=== PATIENT | male | born 1995 | race African-American/Black ===

== ENCOUNTER 2018-11-24 05:07 | Observation (INO) ==
[2018-11-24] MEDS ORDERED: ONDANSETRON INJ 2 MG/ML 2 ML VIAL IV STA (05:41)
[2018-11-24] MEDS ORDERED: MoRPHine SULFATE 4 MG/ML 1 ML CARP\\VIAL IV PRN ×2 (05:41→12:26)
[2018-11-24] MEDS ORDERED: SODIUM CHLORIDE 0.9% 1000ML 1,000 ML IV SCH (05:45)
[2018-11-24 06:03] LABS: Basophils # (auto) 0.03 K/uL (0-0.2); Basophils % (auto) 0.2 %; Eosinophils # (auto) 0.19 K/uL (0-0.5); Eosinophils % (auto) 1.1 %; Hematocrit (blood only) 43.5 % (42-52); Hemoglobin 15.3 g/dL (14.0-18.0); Immature Granulocytes # (auto) 0.05 K/uL (0.00-0.02); Immature Granulocytes % (auto) 0.3 %; Lymphocytes # (auto) 2.36 K/uL (1.2-3.4); Lymphocytes % (auto) 13.2 %; Mean Corpuscular Hgb Conc 35.2 g/dL (32-36); Mean Corpuscular Volume 91.6 fL (80-100); Mean Platelet Volume 9.4 fL (7.4-10.4); Monocytes # (auto) 1.67 K/uL (0.11-0.59); Monocytes % (auto) 9.4 %; Neutrophils # (auto) 13.52 K/uL (1.4-6.5); Neutrophils % (auto) 75.8 %; Platelet Count 284 K/uL (130-400); RDW Coefficient of Variation 12.6 % (11.5-14.5); RDW Standard Deviation 42.6 fL (36.4-46.3); Red Blood Count 4.75 M/uL (4.7-6.1); White Blood Count 17.82 K/uL (4.8-10.8)
[2018-11-24 06:18] LABS: Appearance Urine Clear (Clear); Bilirubin Urine Negative (Negative); Blood Urine Negative (Negative); Color Urine Yellow; Glucose Urine UA Negative (Negative); Ketones Urine Negative (Negative); Leukocyte Esterase Urine Negative (Negative); Nitrite Urine Negative (Negative); Protein Urine Negative (Negative); Specific Gravity Urine 1.024 (1.000-1.030); Urobilinogen Urine Negative (Negative); pH Urine 6.5 (4.5-7.5)
--- NOTE | 2018-11-24 06:18 | Emergency Department Note ---
History of Present Illness General Chief complaint: Abdominal Pain Stated complaint: ABD PAIN Time Seen by Provider: 11/24/18 05:25 History of Present Illness Maximum Pain Intensity: 9 This is a 23-year-old male presenting to the emergency department for evaluation of right lower quadrant abdominal pain that has been slowly worsening over the past 2-3 days. The patient considers himself otherwise usually healthy and has not had symptoms like this in the past. He has not had fever or chills. He last ate at roughly 10 PM yesterday, roughly 7 hours prior to arrival. He has been able to eat and drink as normal, and food does not appear to worsen or improve his symptoms. The patient has not taken anything [id number] and describes the pain as a dull, nonradiating, 05/06. He does not report a history of previous abdominal surgery. Home Medications Home Medications Medication Instructions Recorded Confirmed Type oxycodone-acetaminophen [Percocet] 1 - 2 tab PO Q6H PRN 3 Days #14 tab 11/24/18 Rx Allergies Allergy/AdvReac Type Severity Reaction Status Date / Time No Known Allergies Allergy Unverified 11/24/18 05:46 Past Med/Surg History Medical History No chronic diseases present No significant past surgical history Surgical History S/P wrist surgery Social History Preferred Language: [place]ian Communication Ability: Effective Beliefs That Will Affect Care: None Current Living Situation: Alone Other Information That Helps Us Care for You: No Feels Safe at Home: Yes Safety Concerns: Feels Safe At This Time Smoking Status: Never smoker Hx Alcohol Use: No Hx Substance Use: No Review of Systems A total of 10 systems reviewed and were otherwise negative Physical Exam Vital Signs Vital Signs - 24 hr 11/24/18 05:13 11/24/18 07:22 11/24/18 10:56 Temperature 36.3 C L Temperature Source Oral Sepsis Recent Fever Within 48 Hours No Sepsis Action Taken by Nursing No Action Required Pulse Rate 83 Pulse Rate [Apical] Pulse Rate [Right Finger] 59 L 64 Pulse Rhythm [Apical] Pulse Rhythm [Right Finger] Regular Regular Pulse Strength [Right Finger] Normal Normal Respiratory Rate 16 20 20 Respiratory Effort / Characteristics Non-Labored Spontaneous Non-Labored Spontaneous Non-Labored Spontaneous Respiratory Depth Normal Normal Normal Respiratory Pattern Regular Regular Blood Pressure 127/66 Blood Pressure [Left Arm] Blood Pressure [Right Arm] 126/57 L 106/36 L Blood Pressure Mean 86 Blood Pressure Mean [Left Arm] Blood Pressure Mean [Right Arm] 80 59 Blood Pressure Position Sitting Blood Pressure Position [Left Arm] Blood Pressure Position [Right Arm] Sitting Pulse Oximetry 99 100 99 Oxygen Delivery Method Room Air Room Air Room Air Oxygen Flow Rate 11/24/18 12:31 11/24/18 12:40 11/24/18 12:50 Temperature 36.8 C Temperature Source Temporal Artery Scan Sepsis Recent Fever Within 48 Hours Sepsis Action Taken by Nursing Pulse Rate Pulse Rate [Apical] 76 76 100 H Pulse Rate [Right Finger] Pulse Rhythm [Apical] Regular Regular Regular Pulse Rhythm [Right Finger] Pulse Strength [Right Finger] Respiratory Rate 17 12 18 Respiratory Effort / Characteristics Non-Labored Spontaneous Non-Labored Spontaneous Non-Labored Spontaneous Respiratory Depth Normal Normal Normal Respiratory Pattern Regular Regular Regular Blood Pressure Blood Pressure [Left Arm] 112/49 L 118/49 L 134/63 Blood Pressure [Right Arm] Blood Pressure Mean Blood Pressure Mean [Left Arm] 70 72 86 Blood Pressure Mean [Right Arm] Blood Pressure Position Blood Pressure Position [Left Arm] Semi-fowlers Semi-fowlers Semi-fowlers Blood Pressure Position [Right Arm] Pulse Oximetry 97 100 92 Oxygen Delivery Method Oxymask Oxymask Oxymask Oxygen Flow Rate 10 10 10 11/24/18 13:00 11/24/18 13:10 11/24/18 13:20 Temperature Temperature Source Sepsis Recent Fever Within 48 Hours Sepsis Action Taken by Nursing Pulse Rate Pulse Rate [Apical] 96 H 85 75 Pulse Rate [Right Finger] Pulse Rhythm [Apical] Regular Regular Regular Pulse Rhythm [Right Finger] Pulse Strength [Right Finger] Respiratory Rate 18 14 14 Respiratory Effort / Characteristics Non-Labored Spontaneous Non-Labored Spontaneous Non-Labored Spontaneous Respiratory Depth Normal Normal Normal Respiratory Pattern Regular Regular Regular Blood Pressure Blood Pressure [Left Arm] 122/68 117/77 123/51 L Blood Pressure [Right Arm] Blood Pressure Mean Blood Pressure Mean [Left Arm] 86 90 75 Blood Pressure Mean [Right Arm] Blood Pressure Position Blood Pressure Position [Left Arm] Semi-fowlers Semi-fowlers Semi-fowlers Blood Pressure Position [Right Arm] Pulse Oximetry 93 95 95 Oxygen Delivery Method Oxymask Nasal Cannula Nasal Cannula Oxygen Flow Rate 10 2 2 11/24/18 13:30 11/24/18 13:40 11/24/18 13:50 Temperature 37.3 C Temperature Source Temporal Artery Scan Sepsis Recent Fever Within 48 Hours Sepsis Action Taken by Nursing Pulse Rate Pulse Rate [Apical] 79 70 84 Pulse Rate [Right Finger] Pulse Rhythm [Apical] Regular Regular Regular Pulse Rhythm [Right Finger] Pulse Strength [Right Finger] Respiratory Rate 16 14 16 Respiratory Effort / Characteristics Non-Labored Spontaneous Non-Labored Spontaneous Non-Labored Spontaneous Respiratory Depth Normal Normal Normal Respiratory Pattern Regular Regular Regular Blood Pressure Blood Pressure [Left Arm] 117/53 L 120/58 L 117/48 L Blood Pressure [Right Arm] Blood Pressure Mean Blood Pressure Mean [Left Arm] 74 78 71 Blood Pressure Mean [Right Arm] Blood Pressure Position Blood Pressure Position [Left Arm] Semi-fowlers Semi-fowlers Semi-fowlers Blood Pressure Position [Right Arm] Pulse Oximetry 95 97 99 Oxygen Delivery Method Nasal Cannula Nasal Cannula Nasal Cannula Oxygen Flow Rate 2 2 2 11/24/18 14:00 11/24/18 14:30 11/24/18 15:01 Temperature 37.0 C 36.9 C Temperature Source Oral Oral Sepsis Recent Fever Within 48 Hours Sepsis Action Taken by Nursing Pulse Rate Pulse Rate [Apical] 87 Pulse Rate [Right Finger] 72 67 Pulse Rhythm [Apical] Regular Pulse Rhythm [Right Finger] Pulse Strength [Right Finger] Respiratory Rate 17 16 17 Respiratory Effort / Characteristics Non-Labored Spontaneous Non-Labored Spontaneous Respiratory Depth Normal Normal Normal Respiratory Pattern Regular Regular Blood Pressure Blood Pressure [Left Arm] 113/90 118/63 96/40 L Blood Pressure [Right Arm] Blood Pressure Mean Blood Pressure Mean [Left Arm] 97 81 58 Blood Pressure Mean [Right Arm] Blood Pressure Position Blood Pressure Position [Left Arm] Semi-fowlers Lying Blood Pressure Position [Right Arm] Pulse Oximetry 98 94 98 Oxygen Delivery Method Nasal Cannula Nasal Cannula Nasal Cannula Oxygen Flow Rate 2 2 2 11/24/18 15:31 11/24/18 15:35 11/24/18 16:32 Temperature 36.6 C 36.8 C Temperature Source Oral Oral Sepsis Recent Fever Within 48 Hours Sepsis Action Taken by Nursing Pulse Rate Pulse Rate [Apical] Pulse Rate [Right Finger] 80 56 L Pulse Rhythm [Apical] Pulse Rhythm [Right Finger] Pulse Strength [Right Finger] Respiratory Rate 17 17 Respiratory Effort / Characteristics Non-Labored Spontaneous Respiratory Depth Normal Normal Normal Respiratory Pattern Regular Blood Pressure Blood Pressure [Left Arm] 96/57 L 95/57 L Blood Pressure [Right Arm] Blood Pressure Mean Blood Pressure Mean [Left Arm] 70 69 Blood Pressure Mean [Right Arm] Blood Pressure Position Blood Pressure Position [Left Arm] Lying Lying Blood Pressure Position [Right Arm] Pulse Oximetry 90 99 Oxygen Delivery Method Room Air Nasal Cannula Nasal Cannula Oxygen Flow Rate 2 2 11/24/18 17:37 11/24/18 20:00 11/24/18 23:48 Temperature 36.4 C L 36.6 C 36.5 C Temperature Source Oral Oral Oral Sepsis Recent Fever Within 48 Hours Sepsis Action Taken by Nursing Pulse Rate Pulse Rate [Apical] Pulse Rate [Right Finger] 69 60 50 L Pulse Rhythm [Apical] Pulse Rhythm [Right Finger] Regular Regular Pulse Strength [Right Finger] Normal Normal Respiratory Rate 17 16 16 Respiratory Effort / Characteristics Non-Labored Spontaneous Respiratory Depth Normal Normal Normal Respiratory Pattern Blood Pressure Blood Pressure [Left Arm] 100/56 L 93/62 L 92/49 L Blood Pressure [Right Arm] Blood Pressure Mean Blood Pressure Mean [Left Arm] 70 72 63 Blood Pressure Mean [Right Arm] Blood Pressure Position Blood Pressure Position [Left Arm] Lying Lying Lying Blood Pressure Position [Right Arm] Pulse Oximetry 95 99 97 Oxygen Delivery Method Room Air Room Air Room Air Oxygen Flow Rate VITALS: Vitals are noted on the nurse's note and reviewed by myself. Vital signs stable. GENERAL: Well-developed, well-nourished, male, who is in no acute distress and resting comfortably. Patient is cooperative with the examination. HEAD: Normocephalic atraumatic. EYES: Pupils equal round and reactive to light and accommodation. Conjunctivae without injection, sclerae without icterus. Extraocular movements intact. MOUTH: Mucous membranes moist. Tonsils are not enlarged. Pharynx without erythema, blood, or exudate. Uvula midline. Airway patent. NECK: Supple without nuchal rigidity. No lymphadenopathy. No thyromegaly. Cervical spine is nontender. HEART: Regular rate and rhythm without murmurs gallops or rubs. LUNGS: Clear to auscultation bilaterally without wheezes, rales or rhonchi. No retractions or accessory muscle use. ABDOMEN: Positive normal bowel sounds x 4. Soft with exquisite right lower quadrant tenderness on palpation. No rebound or guarding. No CVA tenderness. MUSCULOSKELETAL: No muscle atrophy, erythema, or edema noted. Full range of motion in all extremities. NEURO: Patient was alert and oriented to person place and time. CN II through XII grossly intact. SKIN: The skin was without rashes, erythema, edema, or bruising. Capillary refill less than 2 seconds. Course Administered Medications Lactated Ringer's (Lr) 1,000 mls @ 125 mls/hr IV .Q8H ELIZABETH Stop: 12/24/18 12:29 Last Admin: 11/25/18 00:17 Dose: 125 mls/hr Documented by: [id number] Infusion: 11/25/18 00:17 Dose: 125 mls/hr Documented by: [id number] Admin: 11/24/18 16:51 Dose: 125 mls/hr Documented by: [id number] Ibuprofen (Motrin) 600 mg PO TID PRN PRN Reason: Pain Stop: 12/24/18 20:14 Last Admin: 11/24/18 20:58 Dose: 600 mg Documented by: [id number] Ioversol (Optiray 320 100ml) 94 ml IV ONCE PRN PRN Reason: Interaction Checking Stop: 11/28/18 08:22 Last Admin: 11/24/18 08:24 Dose: 94 ml Documented by: [id number] Ondansetron HCl (Zofran) 4 mg IV Q4H PRN PRN Reason: Nausea And Vomiting Stop: 12/24/18 12:25 Last Admin: 11/24/18 20:22 Dose: 4 mg Documented by: [id number] Admin: 11/24/18 17:16 Dose: 4 mg Documented by: [id number] Discontinued Medications Sodium Chloride (Nss 1000ml) 1,000 mls @ 999 mls/hr IV .Q1H1M ELIZABETH Stop: 11/24/18 06:45 Last Infusion: 11/24/18 07:00 Dose: 0 mls/hr Documented by: [id number] Admin: 11/24/18 05:55 Dose: 999 mls/hr Documented by: [id number] Sodium Chloride (Nss) 500 mls @ 125 mls/hr IV .Q4H ELIZABETH Stop: 12/24/18 09:29 Last Admin: 11/24/18 15:32 Dose: Not Given Documented by: [id number] Infusion: 11/24/18 15:32 Dose: 0 mls/hr Documented by: [id number] Admin: 11/24/18 09:42 Dose: 125 mls/hr Documented by: [id number] Cefoxitin Sodium (Mefoxin) 2,000 mg in 60 mls @ 100 mls/hr IV NOW STA Stop: 11/24/18 09:55 Last Infusion: 11/24/18 15:31 Dose: 0 mls/hr Documented by: [id number] Admin: 11/24/18 09:41 Dose: 100 mls/hr Documented by: [id number] Lidocaine/Epinephrine (Xylocaine/Epinephrine 1%) Confirm Administered Dose 20 ml .ROUTE .STK-MED ONE Stop: 11/24/18 11:04 Last Admin: 11/24/18 12:08 Dose: 15 ml Documented by: [id number] Meperidine HCl (Demerol) 12.5 mg IV Q5M PRN PRN Reason: PACU Use Only-Pain/Shivering Stop: 11/24/18 17:48 Last Admin: 11/24/18 13:03 Dose: 12.5 mg Documented by: [id number] Meperidine HCl (Demerol) Confirm Administered Dose 25 mg .ROUTE .STK-MED ONE Stop: 11/24/18 12:50 Last Admin: 11/24/18 15:30 Dose: Not Given Documented by: [id number] Morphine Sulfate (Morphine Sulfate) 4 mg IV Q1H PRN PRN Reason: Pain Stop: 12/08/18 05:40 Last Admin: 11/24/18 05:55 Dose: 4 mg Documented by: [id number] Ondansetron HCl (Zofran) 4 mg IV NOW STA Stop: 11/24/18 05:42 Last Admin: 11/24/18 05:55 Dose: 4 mg Documented by: [id number] Oxycodone/Acetaminophen (Percocet 5mg/325mg) 1 tab PO Q4H PRN PRN Reason: MODERATE Pain (Scale 4,5,6) Stop: 12/08/18 12:25 Last Admin: 11/24/18 17:13 Dose: 1 tab Documented by: [id number] Medical Decision Making Differential Diagnosis Differential diagnosis: Etiologies such as biliary colic, cholecystitis, hepatitis, pancreatitis, cardiac disease, pancreatitis, gastritis, peptic ulcer disease, appendicitis, cystitis, diverticulitis, mesenteric ischemia, inflammatory bowel disease, ileus, bowel obstruction, testicular/adnexal torsion, aortic pathology, shingles, as well as others were considered Laboratory Data Result diagrams: 11/24/18 05:33 11/24/18 05:33 Lab Results 11/24/18 11/24/18 11/24/18 Range/Units 05:33 05:33 05:33 WBC 17.82 H (4.8-10.8) K/uL RBC 4.75 (4.7-6.1) M/uL Hgb 15.3 (14.0-18.0) g/dL Hct 43.5 (42-52) % MCV 91.6 (80-100) fL MCH 32.2 (25-34) pg MCHC 35.2 (32-36) g/dL RDW Std Deviation 42.6 (36.4-46.3) fL RDW Coeff of Luciano 12.6 (11.5-14.5) % Plt Count 284 (130-400) K/uL MPV 9.4 (7.4-10.4) fL Immature Gran % (Auto) 0.3 % Neut % (Auto) 75.8 % Lymph % (Auto) 13.2 % [place] % (Auto) 9.4 % Eos % (Auto) 1.1 % Baso % (Auto) 0.2 % Immature Gran # (Auto) 0.05 H (0.00-0.02) K/uL Neut # (Auto) 13.52 H (1.4-6.5) K/uL Lymph # (Auto) 2.36 (1.2-3.4) K/uL [place] # (Auto) 1.67 H (0.11-0.59) K/uL Eos # (Auto) 0.19 (0-0.5) K/uL Baso # (Auto) 0.03 (0-0.2) K/uL Sodium 141 (136-145) mmol/L Potassium 3.7 (3.5-5.1) mmol/L Chloride 108 H (98-107) mmol/L Carbon Dioxide 29 (21-32) mmol/L Anion Gap 4.0 (3-11) BUN 11 (7-18) mg/dl Creatinine 1.01 (0.6-1.4) mg/dl Est Cr Clr Drug Dosing 99.2 ml/min Est GFR ( Amer) 122.7 Est GFR (Non-Af Amer) 105.8 BUN/Creatinine Ratio 11.3 (10-20) Glucose 93 (70-99) mg/dl Calcium 9.2 (8.5-10.1) mg/dl Total Bilirubin 1.2 H (0.2-1) mg/dl AST 24 (15-37) U/L ALT 25 (12-78) U/L Alkaline Phosphatase 44 L (45-117) U/L Total Protein 8.2 (6.4-8.2) gm/dl Albumin 4.1 (3.4-5.0) gm/dl Globulin 4.1 H (2.5-4.0) gm/dl Albumin/Globulin Ratio 1.0 (0.9-2) Lipase 148 (73-393) U/L Specimen Hemolysis Urine Color Yellow Urine Appearance Clear (Clear) Urine pH 6.5 (4.5-7.5) Ur Specific [place] 1.024 (1.000-1.030) Urine Protein Negative (Negative) Urine Glucose (UA) Negative (Negative) Urine Ketones Negative (Negative) Urine Blood Negative (Negative) Urine Nitrite Negative (Negative) Urine Bilirubin Negative (Negative) Urine Urobilinogen Negative (Negative) Ur Leukocyte Esterase Negative (Negative) Imaging Data Radiologist's Impression: ABDOMEN AND PELVIS CT WITH IV AND ORAL CONTRAST CT DOSE: 278.28 mGy.cm HISTORY: Acute right lower quadrant abdominal pain with nausea, vomiting and diarrhea RLQ abd pain TECHNIQUE: Multiaxial CT images of the abdomen and pelvis were performed following the use of intravenous and oral contrast. A dose lowering technique was utilized adhering to the principles of ALARA. COMPARISON STUDY: None. FINDINGS: The imaged lung bases appear clear. The study is mildly motion degraded. There is no pneumatosis or pneumoperitoneum identified. The imaged inferior cardiac chambers are unremarkable. Periportal edema is likely related to hydration status. Indeterminate 3 mm hypodense lesion of the inferior right hepatic lobe, likely benign. Liver is otherwise unremarkable. The gallbladder, spleen, pancreas and adrenal glands are unremarkable. Kidneys and ureters are within normal limits. Mild urinary bladder distention. Trace free pelvic fluid about the dependent pelvis. Aorta and IVC are unremarkable. There is no significant adenopathy. No small bowel obstruction. The appendix is fluid-filled and dilated measuring up to 10 mm transversely with mucosal hyperemia and moderate adjacent periappendiceal inflammation. Trace fluid fluid about the right pericolic distribution. No evidence of perforation or drainable fluid collection. Soft tissues are unremarkable. Bones appear to be intact. IMPRESSION: 1. Findings compatible with acute uncomplicated appendicitis. No evidence of perforation or drainable fluid collection. 2. No bowel obstruction. 3. Trace free pelvic fluid, likely reactive. MDM Narrative Physical exam and history were performed. Nursing notes, EMR, and Medication List were personally reviewed. Patient appears to have right lower quadrant abdominal pain bringing him to the emergency department. The patient is exquisitely tender in the right lower quadrant on gentle palpation. IV access was established and labs were obtained. The patient was hydrated with normal saline and given IV morphine and IV Zofran. CT scan with IV and oral contrast was ordered. The patient's blood work is as above and was reviewed. He does have a markedly elevated white blood cell count of 17.8 with associated shift. He does not have a significant anemia or gross electrolyte imbalance. Lipase and transaminases are not diagnostic. CT scan is as above and was reviewed by myself and radiology. CT scan does reveal acute uncomplicated appendicitis. The findings were discussed with the patient. I also discussed the findings with the patient's family by telephone. We did consult the general surgeon, Dr. Freeman, who agreed to evaluate the patient here in the department. The patient was started on Mefoxin and maintenance fluids. Please see the surgical team dictation for further patient course, plan, and disposition. The chart was completed utilizing [employer]™ Speech Voice Recognition Software. Grammatical errors, random word insertions, pronoun errors, and incomplete sentences are an occasional consequence of this system due to software limitations, ambient noise, and hardware issues. Any formal questions or concerns about the content, text, or information contained within the body of this dictation should be directly addressed to the provider for clarification. . Impression & Plan Acute appendicitis Discharge Plan Visit Data *Final* Discharge Date/Time: 11/24/18 11:06 Chief Complaint: Abdominal Pain Stated Complaint: ABD PAIN ED Provider: Toribio Mcmullen ED Midlevel Provider: Blaise Jones Discharge Problem: Acute appendicitis Patient Disposition: Still a Patient Discharge Instructions Interventions: ED Discharge Assessment Last Done: 11/24/18 11:06 Discharge Problem: Acute appendicitis Qualifiers: Acute appendicitis type: unspecified acute appendicitis type Qualified Code(s): K35.80 - Unspecified acute appendicitis
[2018-11-24 06:19] LABS: Albumin Level 4.1 gm/dl (3.4-5.0); BUN Creatinine Ratio 11.3 (10-20); Bilirubin,Total 1.2 mg/dl (0.2-1); Calcium 9.2 mg/dl (8.5-10.1); Creatinine Clr Calc Pharmacy 99.2 ml/min; Est GFR (African American) 122.7; Est GFR (Non-African American) 105.8; Globulin 4.1 gm/dl (2.5-4.0); Potassium 3.7 mmol/L (3.5-5.1); Total Protein 8.2 gm/dl (6.4-8.2)
[2018-11-24] MEDS ORDERED: IOVERSOL 100ml IV PRN (08:23)
--- NOTE | 2018-11-24 08:43 | CT Scan Report ---
ABDOMEN AND PELVIS CT WITH IV AND ORAL CONTRAST CT DOSE: 278.28 mGy.cm HISTORY: Acute right lower quadrant abdominal pain with nausea, vomiting and diarrhea RLQ abd pain TECHNIQUE: Multiaxial CT images of the abdomen and pelvis were performed following the use of intrave nous and oral contrast. A dose lowering technique was utilized adhering to the principles of ALARA. COMPARISON STUDY: None. FINDINGS: The imaged lung bases appear clear. The study is mildly motion degraded. There is no pneumatosis or pneumoperitoneum identified. The imaged inferior cardiac chambers are unremarkable. Periportal edema is likely related to hydration status. Indeterminate 3 mm hypodense lesion of the in ferior right hepatic lobe, likely benign. Liver is otherwise unremarkable. The gallbladder, spleen, p ancreas and adrenal glands are unremarkable. Kidneys and ureters are within normal limits. Mild urina ry bladder distention. Trace free pelvic fluid about the dependent pelvis. Aorta and IVC are unremark able. There is no significant adenopathy. No small bowel obstruction. The appendix is fluid-filled and dilated measuring up to 10 mm transverse ly with mucosal hyperemia and moderate adjacent periappendiceal inflammation. Trace fluid fluid about the right pericolic distribution. No evidence of perforation or drainable fluid collection. Soft tis sues are unremarkable. Bones appear to be intact. IMPRESSION: 1. Findings compatible with acute uncomplicated appendicitis. No evidence of perforation or drainable fluid collection. 2. No bowel obstruction. 3. Trace free pelvic fluid, likely reactive. Electronically signed by: Juan Perez M.D. 11/24/2018 8:41 AM
[2018-11-24] MEDS ORDERED: cefOXitin 2,000 MG/60 ML BAG IV STA (09:20)
[2018-11-24] MEDS: SODIUM CHLORIDE 0.9% 500 ML IV SCH ×2 (09:42→15:32)
[2018-11-24] MEDS ORDERED: ATROPINE SULFATE 0.1 MG/ML 10ML SYR IV PRN (10:20)
[2018-11-24] MEDS ORDERED: ONDANSETRON INJ 2 MG/ML 2 ML VIAL ONE (10:20)
[2018-11-24] MEDS ORDERED: ROCURONIUM BROMIDE 10 MG/ML 5 ML VIAL ONE (10:20)
[2018-11-24] MEDS ORDERED: DEXAMETHASONE SOD INJ 4 MG/ML VIAL ONE (10:20)
[2018-11-24] MEDS ORDERED: fentaNYL citrate 100 MCG/2 ML VIAL IV PRN (10:20)
[2018-11-24] MEDS ORDERED: fentaNYL citrate 100 MCG/2 ML VIAL ONE ×2 (10:20→11:39)
[2018-11-24] MEDS ORDERED: ONDANSETRON INJ 2 MG/ML 2 ML VIAL IV PRN (10:20)
[2018-11-24] MEDS ORDERED: MIDAZOLAM HCL 1 MG/ML 2ML VIAL ONE (10:20)
[2018-11-24] MEDS ORDERED: ePHEDrine sulfate 50 MG/ML AMP IV PRN (10:20)
[2018-11-24] MEDS ORDERED: PROPOFOL IV EMULSION 10 MG/ML 20 ML VIAL IV ONE (10:20)
--- NOTE | 2018-11-24 10:52 | History & Physical Bridge Note ---
Date of Service November 24, 2018 History & Physical Bridge Note I have examined the patient, reviewed the History & Physical and in the interval since the performance of the History & Physical I have noted the following changes of clinical significance: no changes noted localized tenderness and rebound rlq ct scan acute appendicitis elevated wbc will plan for lap appy possible open r and c explained to pt family members driving in
--- NOTE | 2018-11-24 10:54 | Surgery Consultation ---
Date of Consultation November 24, 2018 Assessment & Plan (1) Acute appendicitis: Patient seen and examined with Dr Freeman. Recommend removal of appendix. Patient agreeable. Will proceed with Laparoscopic Appendectomy, Possible Open Appedectomy in OR today. Risks of surgery reviewed with patient. All questions answered. Consent obtained. SCDs. History of Present Illness Reason for Consultation: Acute Appendicitis History of Present Illness Mr. Renee is a healthy 23 year old male who presents to [facility] ED for evaluation of abdominal pain x 3 days. He reports that he was getting ready to travel to [place], but developed this worsening abdominal pain. Patient reports some nausea, but denies vomiting. He reports prior surgical history significant for right arm surgery. He denies prior abdominal surgeries. He denies fevers or chills. Last meal was yesterday night (10PM). CT scan in ED reveals findings compatible with acute uncomplicated appendicitis. No evidence of perforation or drainable fluid collection. No bowel obstruction. Trace free pelvic fluid, likely reactive. WBC elevated at 17.82 Allergies Allergy/AdvReac Type Severity Reaction Status Date / Time No Known Allergies Allergy Unverified 11/24/18 05:46 Home Medications Home Medications Medication Instructions Recorded Confirmed Type No Known Home Medications 11/24/18 11/24/18 History Patient History Medical History No chronic diseases present No significant past surgical history Social History Feels Safe at Home: Yes Smoking Status: Never smoker Physical Exam Vital Signs (Past 24 Hours): Last Vital Signs Temp 36.3 C L 11/24/18 05:13 Pulse 59 L 11/24/18 07:22 Resp 20 11/24/18 07:22 BP 126/57 L 11/24/18 07:22 Pulse Ox 100 11/24/18 07:22 Gastrointestinal (Abdomen): Percussion/Palpation: + abdomen tender (right lower quadrant ) and abdomen soft (1) Acute appendicitis Acute appendicitis type: unspecified acute appendicitis type Qualified Code(s): K35.80 - Unspecified acute appendicitis
[2018-11-24] MEDS ORDERED: LIDOCAINE/EPINEPHRINE 1% 20 ML VIAL ONE (11:03)
--- NOTE | 2018-11-24 11:11 | Anesthesiology Consultation ---
Date of Service November 24, 2018 Assessment & Plan (1) Encounter for pre-operative examination: Chart Review Chart Review: Acceptable Risk for Surgery Consults Requested none ASA [id number] Proposed Anesthesia Anesthesia Type: General Risk / Benefits Reviewed With: PT / POA / Parent / Guardian, Accepts Plan and Informed Consent Obtained NPO Date Last Intake of Fluids: 11/23/18 Time Last Intake of Fluids: 22:00 Last Intake of Fluids Comment: galina mist Date Last Intake of Solids: 11/23/18 Time Last Intake of Solids: 22:00 Last Intake of Solids Comment: [place] History Surgery Operation Date: 11/24/18 11:00 Proposed Procedures p Laparoscopic Appendectomy - Alfa Freeman MD Height/Weight Height: 5 ft 7 in Weight: 60.6 kg Allergies Allergy/AdvReac Type Severity Reaction Status Date / Time No Known Allergies Allergy Unverified 11/24/18 05:46 Medications Home Medications Medication Instructions Recorded Confirmed Last Taken No Known Home Medications 11/24/18 11/24/18 Unknown Active Medications Generic Name Dose Route Start Last Admin Trade Name Freq PRN Reason Stop Dose Admin Sodium Chloride 500 mls @ 125 mls/hr 11/24/18 09:30 11/24/18 09:42 Nss IV 12/24/18 09:29 125 mls/hr .Q4H ELIZABETH Administration Ioversol 94 ml 11/24/18 08:23 11/24/18 08:24 Optiray 320 100ml IV 11/28/18 08:22 94 ml ONCE PRN Administration Interaction Checking Morphine Sulfate 4 mg 11/24/18 05:41 11/24/18 05:55 Morphine Sulfate IV 12/08/18 05:40 4 mg Q1H PRN Administration Pain Past Medical History Medical History No chronic diseases present No significant past surgical history Past Surgical History Surgical History S/P wrist surgery Past Anesthesia History No Hx of Anesthesia Complications and No Family Hx of Anesthesia Complications History of PONV No Motion Sickness Screening History of Motion Sickness: No Social History Smoking Status: Never smoker Exercise / Class Metabolic Activity II 4-5 Yardwork/Stairs/Walk up hill Physical Exam Vital Signs Last Vital Signs Temp 97.3 F L 11/24/18 05:13 Pulse 64 11/24/18 10:56 Resp 20 11/24/18 10:56 BP 106/36 L 11/24/18 10:56 Pulse Ox 99 11/24/18 10:56 ENMT Mouth: no dentition abnormality Thyromental Distance: > or= 3.5 Finger Breadths Mallampati Class: II Neck normal visual inspection Respiratory normal respiratory effort Auscultation: lungs clear to auscultation bilaterally Cardiovascular Rate/Rhythm: regular rate and regular rhythm Testing Laboratory Results 11/24/18 05:33 11/24/18 05:33 Urine Color Yellow 11/24/18 05:33 Urine Appearance Clear (Clear) 11/24/18 05:33 Urine pH 6.5 (4.5-7.5) 11/24/18 05:33 Ur Specific [place] 1.024 (1.000-1.030) 11/24/18 05:33 Urine Protein Negative (Negative) 11/24/18 05:33 Urine Glucose (UA) Negative (Negative) 11/24/18 05:33 Urine Ketones Negative (Negative) 11/24/18 05:33 Urine Nitrite Negative (Negative) 11/24/18 05:33 Ur Leukocyte Esterase Negative (Negative) 11/24/18 05:33
--- NOTE | 2018-11-24 12:06 | Post Operative Brief Note ---
Immediate Post Op Note v1 Date of Surgery November 24, 2018 Pre & Post Diagnosis Operation Date: 11/24/18 11:00 Pre-Op Diagnosis: Acute Appendicitis Post-Op Diagnosis: Acute Appendicitis Procedure Operation Date: 11/24/18 11:00 Actual Procedures p Laparoscopic Appendectomy - Alfa Freeman MD Surgeon Alfa Freeman MD Furniture Servicer Opal QUINN Estimated Blood Loss 5 Findings Consistent with Post-Op Diagnosis
--- NOTE | 2018-11-24 12:16 | Operative Report ---
Post Operative Report Pre & Post Diagnosis Operation Date: 11/24/18 11:00 Pre-Op Diagnosis: Acute Appendicitis Post-Op Diagnosis: Acute Appendicitis Patient was brought into the operating theater supine position general endotracheal anesthesia abdomen prepped with Betadine properly draped systemic antibiotics on board a timeout was had small incision made supraumbilically sufficient enough for Veress needle followed by CO2 followed by 5 mm trocar point of entry expected no intra-identified direct visualization we were able to see the cecum looking at it patient had a very small indirect hernia on the right direct visualization we then placed a 5 mm costal port with preemptive local analgesic camera was placed in that area we then we converted the umbilical port to a 12 mm by enlarging the incision dilating the tract Daysi and placing the trocar the 5 mm trocar was removed from umbilical area was placed in the left lower quadrant under direct visualization Was placed in left lower quadrant were able then to use the umbilical right upper quadrant port to elevate the cecum identify the appendix which was fairly broad-based excuse me very long and it was significant retroperitoneal with some fibrous adhesions we elevated up and took down these fibrous adhesions laterally down towards centrally we then were able to identify that the patient artery to the appendix and the mesoappendix was quite large we doubly clipped approximately once distally and divided created a window between the cecum and the mesoappendix at the takeoff of the appendix then were able to place a marie load KECAI and resected the appendix off the cecum staple line was free of any losing continue elevating the appendix all the way to freeing up all the mesentery to it most which was electrocauterized a few was clipped pretty much had the whole specimen the appendix itself there was no fibers and exudate was edematous but nonruptured the appendix was then placed in an Endopouch patient was placed in reverse Trendelenburg position we suctioned out the area of the hemostasis was excellent the staple line was free of any bleeding the appendix was then removed through the umbilical port after removing the right upper quadrant and left lower quadrant port under direct visualization wound was closed with Vicryl 0 Vicryl suture [id number] the umbilical area fascial stitch x2 the other ones were Monocryl Steri-Strips applied procedure was tolerated well by the patient estimated blood loss approximately 5 cc addendum Jayna QUINN was present the whole case to help with exposure traction camera work and wound closure Procedure Operation Date: 11/24/18 11:00 Actual Procedures p Laparoscopic Appendectomy - Alfa Freeman MD Surgeon Alfa Freeman MD Treating Inspector Opal QUINN Estimated Blood Loss 5 Findings Consistent with Post-Op Diagnosis Specimens NON RUPTURE ACVUTE APPENDIX Description of Procedure merda I attest to the content of the Intraoperative Record and any orders documented therein. Any exceptions are noted below.
[2018-11-24] MEDS ORDERED: OXYCODONE/ACETAMINOPHEN 5mg/325mg TAB PO PRN ×2 (12:26)
[2018-11-24] MEDS ORDERED: MoRPHine SULFATE 2 MG/ML CARP IV PRN ×2 (12:26)
[2018-11-24] MEDS ORDERED: MEPERIDINE HCL 25 MG/ML CARP IV PRN (12:48)
[2018-11-24] MEDS ORDERED: MEPERIDINE HCL 25 MG/ML CARP ONE (12:49)
--- NOTE | 2018-11-24 13:05 | Anesthesiology Progress Note ---
Date of Service November 24, 2018 Anesthesia Post Procedure Vital Signs Vital Signs: Temp Pulse Pulse Pulse Resp BP BP 11/24/18 12:50 100 H 18 134/63 11/24/18 12:40 76 12 118/49 L 11/24/18 12:31 98.2 F 76 17 112/49 L 11/24/18 10:56 64 20 11/24/18 07:22 59 L 20 11/24/18 05:13 97.3 F L 83 16 127/66 BP Pulse Ox 11/24/18 12:50 92 11/24/18 12:40 100 11/24/18 12:31 97 11/24/18 10:56 106/36 L 99 11/24/18 07:22 126/57 L 100 11/24/18 05:13 99 Pain Intensity Right Abdomen: Pain Intensity: 0 Notes Mental Status: alert / awake / arousable and participated in evaluation Patient Amnestic to Procedure: Yes Nausea / Vomiting: adequately controlled Pain: adequately controlled Airway Patency, RR, SpO2: stable & adequate BP & HR: stable & adequate Hydration State: stable & adequate Anesthetic Complications: no major complications apparent and Pt Satisfied with anesthetic care
[2018-11-24] MEDS: LACTATED RINGER'S 1,000 ML IV SCH (16:51)
[2018-11-24] MEDS: ONDANSETRON INJ 2 MG/ML 2 ML VIAL IV PRN ×2 (17:16→20:22)
[2018-11-24] MEDS: IBUPROFEN 600 MG TAB PO PRN (20:58)
[2018-11-25] MEDS: LACTATED RINGER'S 1,000 ML IV SCH ×2 (00:17→05:31)
--- NOTE | 2018-11-25 07:59 | Surgery Progress Note ---
Date of Service November 25, 2018 Assessment & Plan (1) Acute appendicitis: POD #1- s/p Laparoscopic Appendectomy. Patient seen and examined with Dr. Freeman. No new concerns or complaints. Patient doing very well. Father at bedside. Patient tolerating regular diet. Voiding without difficultly. Pain controlled with PO Motrin. Patient ok for discharge today. Return precautions reviewed with patient. Patient to follow-up in General Surgery clinic in 1-2 weeks. School note included on discharge instructions. All questions answered. Subjective Patient resting comfortably in bed- had episode of nausea yesterday evening after having Percocet- Percocet was d/c. Slept well overnight- no new issues with nausea or pain. Voiding on own without difficulty. Physical Exam Vital Signs (Past 24 Hours): Last Vital Signs Temp 36.6 C 11/25/18 07:56 Pulse 69 11/25/18 07:56 Resp 16 11/25/18 07:56 BP 96/58 L 11/25/18 07:56 Pulse Ox 98 11/25/18 07:56 Gastrointestinal (Abdomen): Inspection/Auscultation: + abdominal surgical incision (dressings clean, dry, intact. ) Percussion/Palpation: + abdomen tender (expected mild tenderness at incision sites. ) and abdomen soft (1) Acute appendicitis Acute appendicitis type: unspecified acute appendicitis type Qualified Code(s): K35.80 - Unspecified acute appendicitis
[2018-11-25] MEDS: IBUPROFEN 600 MG TAB PO PRN (14:31)
--- NOTE | 2018-12-03 08:12 | Discharge Summary ---
Date of Service December 03, 2018 Admission HPI Per Admitting Provider History of Present Illness Reason for Consultation: Acute Appendicitis History of Present Illness Mr. Renee is a healthy 23 year old male who presents to [facility] ED for evaluation of abdominal pain x 3 days. He reports that he was getting ready to travel to [place], but developed this worsening abdominal pain. Patient reports some nausea, but denies vomiting. He reports prior surgical history significant for right arm surgery. He denies prior abdominal surgeries. He denies fevers or chills. Last meal was yesterday night (10PM). CT scan in ED reveals findings compatible with acute uncomplicated appendicitis. No evidence of perforation or drainable fluid collection. No bowel obstruction. Trace free pelvic fluid, likely reactive. WBC elevated at 17.82 (1) Acute appendicitis: Patient seen and examined with Dr Freeman. Recommend removal of appendix. Patient agreeable. Will proceed with Laparoscopic Appendectomy, Possible Open Appedectomy in OR today. Risks of surgery reviewed with patient. All questions answered. Consent obtained. SCDs. Principal Diagnosis Acute Appendicitis Discharge Exam Gastrointestinal (Abdomen) Inspection/Auscultation: + abdominal surgical incision (dressings clean, dry, intact. ) Percussion/Palpation: + abdomen tender (expected mild tenderness at incision sites. ) and abdomen soft Discharge Data Allergies Allergy/AdvReac Type Severity Reaction Status Date / Time No Known Allergies Allergy Unverified 11/24/18 05:46 Consultations 11/24/18 08:54 Consult General Surgery Stat Procedures Performed Operation Date: 11/24/18 11:00 Actual Procedures p Laparoscopic Appendectomy - Alfa Freeman MD Ordered Studies 11/24/18 05:41 CT abd pelvis oral and IV con Stat Hospital Course (1) Acute appendicitis: Operation Date: 11/24/18 11:00 Pre-Op Diagnosis: Acute Appendicitis Post-Op Diagnosis: Acute Appendicitis Procedure Operation Date: 11/24/18 11:00 Actual Procedures p Laparoscopic Appendectomy - Alfa Freeman MD POD #1- s/p Laparoscopic Appendectomy. Patient seen and examined with Dr. Freeman. No new concerns or complaints. Patient doing very well. Father at bedside. Patient tolerating regular diet. Voiding without difficultly. Pain controlled with PO Motrin. Patient ok for discharge today. Return precautions reviewed with patient. Patient to follow-up in General Surgery clinic in 1-2 weeks. School note included on discharge instructions. All questions answered. Total Time Total Time Spent Total Time Spent (In Minutes): 5 Discharge Plan Discharge Items Patient Disposition: Home - Self-Care Reason For Visit: S/P LAPAROSCOPIC APPENDECTOMY Discharge Diagnosis: Acute Appendicitis Discharge Goals: Decrease discomfort and Improve function Activity: As commented below Lifting: No more than 10 pounds Lifting Comment: No lifting over 10lbs for the next 2 weeks. Bathing Comment: You may shower in 24 hrs. Do not soak or scrub your incisions. Exercise/Sports: Wait until after follow-up appointment Driving/Machine Use: Resume 1 day after discharge Non-emergency contact: Surgeon Call non-emergency contact if: you have any medication questions, your pain is not controlled, your temperature is above 101.5, your wound has increased redness and your wound has increased drainage Follow-up/Referrals: Alfa Freeman MD [Surgeon] - (Please call the General Surgery clinic at [phone] to schedule a follow-up appointment with Dr. Freeman. Your follow-up appointment with Dr. Freeman will be at our General Surgery clinic located at [address] [place] [address], [place]. ) PCP,NO [Primary Care Provider] - Diet: Regular Addtl Provider Instructions: For pain control- continue to use Motrin 600mg every 8hrs as needed for pain. You have steri-strips over your incisions. Do not pull or peel these off, they will fall off by themselves. Do not drive for 1 day following discharge. Please call the General Surgery clinic at [phone] to schedule a follow-up appointment. Please call the clinic with any questions or concerns. Prescriptions: No Action No Known Home Medications RF: 0 Stand-Alone Forms: My [facility], Work/School Release (Inpt) Discharge Orders: Discharge Order (Routine); Ordered 11/25/18 Ordered By: Joy Dorantes Admission Data Admit Date/Time: 11/24/18 12:26 Attending Provider: Alfa Freeman Admit Provider: Alfa Freeman Primary Care Provider: PCP,NO Other Providers: Alfa Freeman Service: Surgical Services Other Interventions: Discharge Summary Assessment (RN) Last Done: 11/25/18 11:16 Pending Studies at Discharge: Yes Studies:: Pathology report. DC Date/Time DO NOT enter until pt leaves facility: 11/25/18 14:37
== END 2018-11-25 14:37 | disposition home or self-care (01) ==
LOC: ED 05:07 → 3W 11:00 → OR 11:00
DX: K35.80 Unspecified acute appendicitis